=== PATIENT | male | born 2000 | race American Indian/Alaskan Native ===

== ENCOUNTER 2020-06-22 11:48 | Emergency (ER) | payer BC ==
[2020-06-22 11:54] VITALS: BP 113/74
--- NOTE | 2020-06-22 14:43 | Emergency Department Report ---
ED Headache HPI - General Chief Complaint: Headache Stated Complaint: Pressure in Head Time Seen by Provider: 06/22/20 14:37 Source: patient - History of Present Illness Initial Comments: Problems with 19-year-old male who denies any significant past medical history presents to the ER today complaining of pressure to the occipital aspect of his head. Patient states that he has been having this constant daily pressure since August 2019. He states that he came to the ER today because he did research online and it mentioned that his pressure could be related to spinal fluid leakage. Patient states that has seen his PCP for his symptoms and hads had multiple CTs in the past to evaluate his head pressure but no explain etiology of his pressure. He denies any head trauma. He states that the research no hematoma seen neurologist showed that if you had previous sinus surgery that it could lead to spinal fluid leakage but he last had spinal surgery sinus surgery a few years ago. He states that he still continues to have sinus drainage especially when he eats. Patient states that he tried dandelion and vahid tea today which seem to have eased his pain. Patient denies any nausea, vomiting, vision changes, slurred speech, focal weakness, dizziness, cough, fever, chills neck pain. He states that he felt suicidal about 1 to 2 weeks ago and was not eating or drinking anything but he states that this has since resolved, he no longer feels suicidal or have any homicidal ideation or hallucinations. He refuse any psych evaluation at this time. Timing/Duration: other (Chronic; onset since august 2019) Allergies/Adverse Reactions: Allergies No Known Allergies Allergy (Unverified 06/22/20 11:54) ED Review of Systems ROS: Stated complaint: EVALUATION Other details as noted in HPI Comment: All other systems reviewed and negative Constitutional: denies: chills, fever Eyes: denies: eye pain, eye discharge, vision change ENT: denies: ear pain, throat pain Respiratory: denies: cough, shortness of breath, wheezing Cardiovascular: denies: chest pain, palpitations Endocrine: no symptoms reported Gastrointestinal: denies: abdominal pain, nausea, diarrhea Genitourinary: denies: urgency, dysuria Musculoskeletal: denies: back pain, joint swelling, arthralgia Skin: denies: rash, lesions Neurological: headache. denies: weakness, numbness, paresthesias, confusion, abnormal gait Psychiatric: denies: anxiety, depression, auditory hallucinations, visual hallucinations, homicidal thoughts, suicidal thoughts ED Past Medical Hx - Past Medical History Previous Medical History?: Yes Additional medical history: Sinusitis, brain abscess - Surgical History Past Surgical History?: Yes Additional Surgical History: brain surgery for abscess - Social History Smoking Status: Never Smoker Substance Use Type: None ED Physical Exam - General Limitations: No Limitations General appearance: alert, in no apparent distress - Head Head exam: Present: atraumatic, normocephalic, normal inspection - Eye Eye exam: Present: normal appearance, PERRL, EOMI Pupils: Present: normal accommodation - ENT ENT exam: Present: normal exam, normal orophraynx, mucous membranes moist, other (No rhinorrhea or any evidence of leakage from his nose noted noted on exam) - Neck Neck exam: Present: normal inspection, full ROM (Marijuana). Absent: meningismus - Respiratory Respiratory exam: Present: normal lung sounds bilaterally, respiratory distress - Cardiovascular Cardiovascular Exam: Present: regular rate, normal rhythm, normal heart sounds - GI/Abdominal GI/Abdominal exam: Present: soft (No leakage), distended - Neurological Exam Neurological exam: Present: alert, oriented X3, CN II-XII intact, normal gait. Absent: motor sensory deficit - Psychiatric Psychiatric exam: Present: normal affect, normal mood - Skin Skin exam: Present: intact (Gait is completely normal) ED Course Vital Signs 06/22/20 11:52 Temperature 97.4 F L Pulse Rate 82 Respiratory 18 Rate Blood Pressure 113/74 O2 Sat by Pulse 100 Oximetry ED Medical Decision Making - Medical Decision Making The patient presented to the emergency department with a occipital head pressure since August 2019. He did research online today and is concerned that his pressure could be related to cerebrospinal fluid leakage. He denies any head trauma. He reported feeling suicidal about a week ago but denies any psych symptoms currently. It is the patient is now resting comfortably and is alert, talkative, interactive and in no distress. The patient appears well and he is not toxic. The examination is unremarkable and benign. The patient is neurologically intact, has a normal mental status, and is ambulatory in the ER. The history, exam, diagnostic testing and the patient's current condition does not suggest meningitis, stroke, sepsis, subarachnoid hemorrhage, intracranial bleeding, encephalitis, temporal arteritis, or other significant pathology to warrant further testing, continued ED treatment, admission, neurological consultation or other specialist evaluation at this point. Patient had no rhinorrhea on exam.. The vital signs have been stable. The patient's condition is stable and appropriate for discharge. Recommend to patient that he follows up with a neurologist and also his primary care doctor. Patient was stable at time of discharge. Critical care attestation.: If time is entered above; I have spent that time in minutes in the direct care of this critically ill patient, excluding procedure time. ED Disposition Clinical Impression: Occipital headache Disposition: DC-01 TO HOME OR SELFCARE Is pt being admited?: No Does the pt Need Aspirin: No Condition: Stable Instructions: Tension Headache, Adult Additional Instructions: I recommend that you follow-up with the neurologist listed on this discharge instructions for further evaluation including an MRI of your brain. You can also continue to follow-up with your primary care doctor. Return to the ER if your symptoms worsens or changes in any way or if you become suicidal homicidal or having hallucinations. Referrals: SREE HANCOCK II, MD [Staff Physician] - 3-5 Days PRIMARY MD NATALIE [Primary Care Provider] - 3-5 Days Time of Disposition: 14:45
== END 2020-06-22 15:47 | disposition home or self-care (01) ==
LOC: ED 11:48
DX: G44.209 Tension-type headache, unspecified, not intractable (principal); Z98.890 Other specified postprocedural states
CPT/HCPCS: 99282

== ENCOUNTER 2020-06-23 10:01 | Emergency (ER) | payer BC ==
[2020-06-23 10:16] VITALS: BP 103/70
--- NOTE | 2020-06-23 11:12 | Event Note ---
ED Screening Note ED Screening Note: Patient is a 19-year-old male presents emergency room with complaints of "breathing" I asked patient what he meant by this he states he was just breathing i asked if he felt SOB, he stated no Patient denies cough, fever, vomiting, diarrhea, any other symptoms Appears patient needs psychiatric evaluation This initial assessment/diagnostic orders/clinical plan/treatment(s) is/are subject to change based on patients health status, clinical progression and re- assessment by fellow clinical providers in the ED. Further treatment and workup at subsequent clinical providers discretion. Patient/guardian urged not to elope from the ED as their condition may be serious if not clinically assessed and managed. Initial orders include: Mental health evaluation
--- NOTE | 2020-06-23 14:01 | Emergency Department Report ---
<BETTYFRENCHJARAD PandaBrianna - Last Filed: 06/23/20 14:02> ED Psych HPI - General Chief Complaint: Dyspnea/Respdistress Stated Complaint: BREATHING AIR Time Seen by Provider: 06/23/20 11:10 Source: patient Mode of arrival: Ambulatory - History of Present Illness Initial Comments: Patient is 19 years old male unknown past medical or psychiatric history. Patient presented to the ER for the second time in less than 24 hours with no obvious complaint. Patient was asked by the nurse what brought him to the ER he said breathing however when I went to examine the patient, patient refused to talk unable to obtain any information from him. MD Complaint: altered mental status, other - Related Data Allergies Allergy/AdvReac Type Severity Reaction Status Date / Time No Known Allergies Allergy Unverified 06/22/20 11:54 ED Review of Systems Comment: Unobtainable due to pts medical conditions ED Past Medical Hx - Past Medical History Additional medical history: Sinusitis, brain abscess - Surgical History Additional Surgical History: brain surgery for abscess - Social History Smoking Status: Unknown if ever smoked ED Physical Exam - General Limitations: No Limitations General appearance: alert, in no apparent distress - Head Head exam: Present: atraumatic, normocephalic, normal inspection - Eye Eye exam: Present: normal appearance - ENT ENT exam: Present: normal exam, normal orophraynx, mucous membranes moist - Neck Neck exam: Present: normal inspection, full ROM. Absent: tenderness, meningismus - Respiratory Respiratory exam: Present: normal lung sounds bilaterally - Cardiovascular Cardiovascular Exam: Present: regular rate, normal rhythm, normal heart sounds - GI/Abdominal GI/Abdominal exam: Present: soft, normal bowel sounds. Absent: distended, tenderness, guarding, rebound, rigid, organomegaly, mass, bruit, pulsatile mass, hernia - Extremities Exam Extremities exam: Present: normal inspection, full ROM, normal capillary refill. Absent: tenderness - Back Exam Back exam: Present: normal inspection, full ROM. Absent: CVA tenderness (R), CVA tenderness (L) - Neurological Exam Neurological exam: Present: alert, oriented X3, CN II-XII intact, normal gait, reflexes normal. Absent: motor sensory deficit - Psychiatric Psychiatric exam: Present: flat affect - Skin Skin exam: Present: warm, intact, normal color ED Disposition Clinical Impression: Psychiatric disorder Disposition: DC-01 TO HOME OR SELFCARE Condition: Stable Instructions: Confusion Additional Instructions: Outpatient COMMUNITY Behavioral [facility]: [facility]) [address] [place] [address] / [phone] Sunday thru Sunday - 8am - 5pm [facility] Address: [address] [place] [address] Sunday thru Sunday- 7am-2pm [facility] Address: [address] [place] [address] Sunday thru Sunday: 8:30AM-5PM CRISIS RESOURCES [place] Crisis Line: Suicide Prevention Line: Crisis Text Line: Text START to 044175 Emergency: 911 In case of an emergency, please contact the following numbers: [place] Crisis and Access Line: Number: Crisis Text Line: (Text START) Number: 896744 Suicide Prevention Line: Number: Emergency Number: 911 SUBSTANCE ABUSE PROGRAMS: [facility]: Location: [place], [place] [employer]! Address: [address] [place] [address] [facility]: Address: [address] [place] [address] [facility]: Address: [address] [place] [address] [facility]: Address: [address] [place] [address] [facility] Address: [address] [place] [address]. Please contact above numbers to attempt placement into free based program. Medicaid Programs: [facility]: Address: [address] [place] [address] [facility]: Address: [address] [place] [id number] Referrals: PRIMARY CARE, [Primary Care Provider] - 3-5 Days <LOREN BERTRAND - Last Filed: 06/23/20 17:50> ED Review of Systems ROS: Stated complaint: BREATHING AIR Other details as noted in HPI ED Course Vital Signs 06/23/20 10:14 Temperature 98.0 F Pulse Rate 74 Respiratory 20 Rate Blood Pressure 103/70 O2 Sat by Pulse 100 Oximetry - Reevaluation(s) Reevaluation #1: 06/23/20 17:42 Patient reevaluated and in no acute distress without complaint. Patient initially reluctant to give history, however, upon informing him he has been cleared by psychiatry for discharge he states he has come to the ER because he feels like he cannot think clearly lately. Neuro exam is nonfocal. Cleared by psychiatry for discharge with referral for outpatient substance abuse treatment. 06/23/20 17:49 ED Medical Decision Making - Lab Data Result diagrams: 06/23/20 14:12 06/23/20 14:12 Labs 06/23/20 06/23/20 06/23/20 14:12 14:12 14:12 WBC 4.8 RBC 4.85 Hgb 13.5 Hct 41.3 MCV 85 MCH 28 MCHC 33 RDW 15.7 H Plt Count 218 Lymph % (Auto) 35.1 H Todd % (Auto) 7.6 H Eos % (Auto) 1.3 Baso % (Auto) 0.9 Lymph # (Auto) 1.7 Todd # (Auto) 0.4 Eos # (Auto) 0.1 Baso # (Auto) 0.0 Seg Neutrophils % 55.1 Seg Neutrophils # 2.7 Sodium 142 Potassium 3.9 Chloride 102.9 Carbon Dioxide 30 Anion Gap 13 BUN 12 Creatinine 0.6 L Estimated GFR > 60 BUN/Creatinine Ratio 20 Glucose 78 Calcium 9.8 Urine Color Urine Turbidity Urine pH Ur Specific [place] Urine Protein Urine Glucose (UA) Urine Ketones Urine Blood Urine Nitrite Urine Bilirubin Urine Urobilinogen Ur Leukocyte Esterase Urine WBC (Auto) Urine RBC (Auto) Urine Mucus Urine Yeast (Budding) Salicylates < 0.3 L Urine Opiates Screen Urine Methadone Screen Acetaminophen Ur Barbiturates Screen Ur Phencyclidine Scrn Ur Amphetamines Screen U Benzodiazepines Scrn Urine Cocaine Screen U Marijuana (THC) Screen Drugs of Abuse Note Plasma/Serum Alcohol 06/23/20 06/23/20 06/23/20 14:12 14:12 15:26 WBC RBC Hgb Hct MCV MCH MCHC RDW Plt Count Lymph % (Auto) Todd % (Auto) Eos % (Auto) Baso % (Auto) Lymph # (Auto) Todd # (Auto) Eos # (Auto) Baso # (Auto) Seg Neutrophils % Seg Neutrophils # Sodium Potassium Chloride Carbon Dioxide Anion Gap BUN Creatinine Estimated GFR BUN/Creatinine Ratio Glucose Calcium Urine Color Yellow Urine Turbidity Clear Urine pH 7.0 Ur Specific [place] 1.017 Urine Protein 30 mg/dl Urine Glucose (UA) Neg Urine Ketones Neg Urine Blood Neg Urine Nitrite Neg Urine Bilirubin Neg Urine Urobilinogen < 2.0 Ur Leukocyte Esterase Neg Urine WBC (Auto) 1.0 Urine RBC (Auto) 9.0 Urine Mucus 3+ Urine Yeast (Budding) 1+ Salicylates Urine Opiates Screen Urine Methadone Screen Acetaminophen 5.0 L Ur Barbiturates Screen Ur Phencyclidine Scrn Ur Amphetamines Screen U Benzodiazepines Scrn Urine Cocaine Screen U Marijuana (THC) Screen Drugs of Abuse Note Plasma/Serum Alcohol < 0.01 06/23/20 15:26 WBC RBC Hgb Hct MCV MCH MCHC RDW Plt Count Lymph % (Auto) Todd % (Auto) Eos % (Auto) Baso % (Auto) Lymph # (Auto) Todd # (Auto) Eos # (Auto) Baso # (Auto) Seg Neutrophils % Seg Neutrophils # Sodium Potassium Chloride Carbon Dioxide Anion Gap BUN Creatinine Estimated GFR BUN/Creatinine Ratio Glucose Calcium Urine Color Urine Turbidity Urine pH Ur Specific [place] Urine Protein Urine Glucose (UA) Urine Ketones Urine Blood Urine Nitrite Urine Bilirubin Urine Urobilinogen Ur Leukocyte Esterase Urine WBC (Auto) Urine RBC (Auto) Urine Mucus Urine Yeast (Budding) Salicylates Urine Opiates Screen Negative Urine Methadone Screen Negative Acetaminophen Ur Barbiturates Screen Negative Ur Phencyclidine Scrn Negative Ur Amphetamines Screen Negative U Benzodiazepines Scrn Negative Urine Cocaine Screen Negative U Marijuana (THC) Screen Negative Drugs of Abuse Note Disclamer Plasma/Serum Alcohol Vital Signs 06/23/20 10:14 Temperature 98.0 F Pulse Rate 74 Respiratory 20 Rate Blood Pressure 103/70 O2 Sat by Pulse 100 Oximetry Critical care attestation.: If time is entered above; I have spent that time in minutes in the direct care of this critically ill patient, excluding procedure time. ED Disposition Is pt being admited?: No
[2020-06-23 14:35] LABS: Basophils % (Auto) 0.9 % (0.0-1.8); Eosinophils # (Auto) 0.1 K/mm3 (0.0-0.4); Eosinophils % (Auto) 1.3 % (0.0-4.3); Hematocrit 41.3 % (35.5-45.6); Hemoglobin 13.5 gm/dl (11.8-15.2); Lymphocytes # (Auto) 1.7 K/mm3 (1.2-5.4); Lymphocytes % (Auto) 35.1 % (13.4-35.0); Mean Corpuscular HGB Conc 33 % (32-34); Mean Corpuscular Volume 85 fl (84-94); Monocytes # (Auto) 0.4 K/mm3 (0.0-0.8); Monocytes % (Auto) 7.6 % (0.0-7.3); Platelet Count 218 K/mm3 (140-440); Red Blood Count 4.85 M/mm3 (3.65-5.03); Red Cell Distribution Width 15.7 % (13.2-15.2)
[2020-06-23 14:55] LABS: Blood Urea Nitrogen 12 mg/dL (9-20); Calcium 9.8 mg/dL (8.4-10.2); Hemolysis Index 7
[2020-06-23 15:09] LABS: BUN/Creatinine Ratio 20
[2020-06-23 15:56] LABS: Bilirubin,Urine NEG (Negative); Blood,Urine NEG (Negative); Color,Urine Yellow (Yellow); Mucus,Urine 3+ /HPF; Urobilinogen,Urine < 2.0 mg/dL (<2.0)
[2020-06-23 16:02] LABS: Amphetamine Screen,Urine Negative; Benzodiazepines Screen,Urine Negative; Cannabinoid Screen,Urine Negative; Cocaine Screen,Urine Negative; Methadone Screen,Urine Negative; Opiate Screen,Urine Negative
== END 2020-06-23 17:56 | disposition home or self-care (01) ==
LOC: ED 10:01
DX: R41.82 Altered mental status, unspecified (principal)
CPT/HCPCS: 36415; 80048; 80307; 80320; 81001; 85025; G0480

== ENCOUNTER 2020-06-24 01:47 | Emergency (ER) | payer BC ==
--- NOTE | 2020-06-24 03:59 | Emergency Department Report ---
HPI - General Chief Complaint: Psych Time Seen by Provider: 06/24/20 03:48 - HPI HPI: This is a 19-year-old -[place] male who presents to the emergency department for a mental health evaluation. The patient was seen here yesterday, 06/23/2020, for a psychiatric assessment. He was seen by the psychiatric occupational ther, and the case was staffed with the psychiatric PA, and the patient was cleared by psych for outpatient follow-up. The patient was brought over to [place] by his father and per the father they were allegedly told that they can "come over here voluntarily, but you only get admitted involuntarily" and then they were told to return to the emergency department. When I ask the patient the reason for coming to the emergency department this evening, the patient says " my mind is not right." The patient says "I diagnosed myself with things" in reference to some persistent head pain/pressure that he says he feels that is due to leakage of spinal fluid. However, the patient also admits that he has had multiple CT scans of the head done, and multiple previous visits to emergency departments, without any diagnosis or answers. The patient is not very forthcoming with information and often has to receive multiple encouragements to provide answers to the questions asked. The patient says that he started having issues with focusing after ingesting mushrooms back in December. When asking the patient if he has any auditory or v isual hallucinations, the patient responds with "I do not understand what that means" and "what would something like that look like?" The patient does admit to having some previous suicidal ideations. When asked if he has current suicidal ideations, the patient does not deny it, but says that he recently told his Aunt "that I am dying." The patient's father says that he just recently came back into the patient's life, but "my son needs help." He says that he has been hallucinating, has told himself and family that he wants to kill himself, and "it has gotten so bad that my sister threw him out and he is now homeless." The patient's father also says that he is bipolar, but he is unable to tell me where or when the patient was given this diagnosis. ED Past Medical Hx - Past Medical History Previous Medical History?: Yes Hx Psychiatric Treatment: Yes (Bipolar) Additional medical history: Sinusitis, brain abscess - Surgical History Past Surgical History?: Yes Additional Surgical History: brain surgery for abscess - Social History Smoking Status: Never Smoker Substance Use Type: None ED Review of Systems ROS: Stated complaint: MH EVAL/CLEARANCE Other details as noted in HPI Comment: All other systems reviewed and negative Constitutional: denies: chills, fever Eyes: denies: eye pain, vision change ENT: denies: ear pain, throat pain Respiratory: denies: cough, shortness of breath Cardiovascular: denies: chest pain, palpitations Gastrointestinal: denies: abdominal pain, vomiting Musculoskeletal: denies: back pain, arthralgia Neurological: denies: weakness, numbness Psychiatric: denies: homicidal thoughts Physical Exam - Physical Exam Vital Signs: Vital Signs 06/24/20 02:20 Temperature 98.2 F Pulse Rate 68 Respiratory 18 Rate Blood Pressure 106/64 O2 Sat by Pulse 100 Oximetry Physical Exam: GENERAL: The patient is well-developed well-nourished. HENT: Normocephalic. Atraumatic. Patient has moist mucous membranes. EYES: Extraocular motions are intact. NECK: Supple. Trachea is midline. CHEST/LUNGS: Clear to auscultation. There is no respiratory distress noted. HEART/CARDIOVASCULAR: Regular. There is no tachycardia. There is no murmur. ABDOMEN: Abdomen is soft, nontender. Patient has normal bowel sounds. SKIN: Skin is warm and dry. NEURO: The patient is awake, alert, and oriented. The patient follows commands. Cranial nerves II through XII grossly intact. There is often a long delay between questions and answers. MUSCULOSKELETAL: There is no tenderness or deformity. There is no limitation range of motion. ED Course Vital Signs 06/24/20 02:20 Temperature 98.2 F Pulse Rate 68 Respiratory 18 Rate Blood Pressure 106/64 O2 Sat by Pulse 100 Oximetry ED Medical Decision Making - Lab Data Result diagrams: 06/24/20 12:02 06/24/20 12:02 - Medical Decision Making This patient had a medical clearance done yesterday, so I have not repeated any of the blood work except for the blood alcohol level. That came back negative. I also repeated the UDS which was also negative. The patient's urine sample looked cloudy so a urinalysis was sent and came back showing a urinary tract infection with greater than 60 WBCs. Patient will be started on Macrobid. Vital signs has been reassuring throughout his ED course thus far including myron ng afebrile. Patient returns to the emergency department for a mental health evaluation. He is oriented to person, place, time, but otherwise has a very strange demeanor. There is a long delay between most questions and answers. The patient does not answer all questions. He appears fixated on some issue regarding leakage of spinal fluid that he thinks has caused his mind to "not be right." Per the patient's father, the patient has been hallucinating, responding to internal stimuli, and expressing suicidal ideations. The patient does not deny current suicidal ideations and does express that he has had them in the recent past, at least 2 weeks ago. It appears that what ever has been going on with the patient has caused him to not be able to hold down a job, have a normal social structure, and has caused him to be kicked out of his home and he is now currently homeless. The patient has been made a ED hold to see both case management and a reevaluation from the psychiatric team. If the psychiatric team feels that the patient would benefit from inpatient stabilization, I would consider the patient medically cleared. Critical Care Time: No Critical care attestation.: If time is entered above; I have spent that time in minutes in the direct care of this critically ill patient, excluding procedure time. ED Disposition Clinical Impression: Psychiatric disorder, Medical clearance for psychiatric admission Disposition: DC/TX-65 PSY HOSP/PSY UNIT Is pt being admited?: No Condition: Stable Referrals: PRIMARY CARE, [Primary Care Provider] - 3-5 Days
[2020-06-24 04:55] LABS: Amphetamine Screen,Urine PRESUMPTIVE NEGATIVE; Benzodiazepines Screen,Urine PRESUMPTIVE NEGATIVE; Cannabinoid Screen,Urine PRESUMPTIVE NEGATIVE; Cocaine Screen,Urine PRESUMPTIVE NEGATIVE; Methadone Screen,Urine PRESUMPTIVE NEGATIVE; Opiate Screen,Urine PRESUMPTIVE NEGATIVE
[2020-06-24 05:09] LABS: Bacteria,Urine 2+ /HPF (Negative); Bilirubin,Urine NEG (Negative); Blood,Urine NEG (Negative); Color,Urine Yellow (Yellow); Mucus,Urine 3+ /HPF; Urobilinogen,Urine < 2.0 mg/dL (<2.0)
[2020-06-24] MEDS: NITROFURANTOIN MONOHYD/M-CRYST 100 MG CAP PO SCH ×3 (05:32→21:29)
--- NOTE | 2020-06-24 08:49 | Consultation ---
History of Present Illness - Reason for Consult Consult date: 06/24/20 Reason for consult: MHE Requesting physician: ARIELA REYES - History of Present Psychiatric Illness Per ED Provider: This is a 19-year-old -Filipino male who presents to the emergency department for a mental health evaluation. The patient was seen here yesterday, 06/23/2020, for a psychiatric assessment. He was seen by the psychiatric gps navigation installer, and the case was staffed with the psychiatric PA, and the patient was cleared by psych for outpatient follow-up. The patient was brought over to [place] by his father and per the father they were allegedly told that they can "come over here voluntarily, but you only get admitted involuntarily" and then they were told to return to the emergency department. When I ask the patient the reason for coming to the emergency department this evening, the patient says " my mind is not right." The patient says "I diagnosed myself with things" in reference to some persistent head pain/pressure that he says he feels that is due to leakage of spinal fluid. However, the patient also admits that he has had multiple CT scans of the head done, and multiple previous visits to emergency departments, without any diagnosis or answers. The patient is not very forthcoming with information and often has to receive multiple encouragements to provide answers to the questions asked. The patient says that he started having issues with focusing after ingesting mushrooms back in December. When asking the patient if he has any auditory or visual hallucinations, the patient responds with "I do not understand what that means" and "what would something like that look like?" The patient does admit to having some previous suicidal ideations. When asked if he has current suicidal ideations, the patient does not deny it, but says that he recently told his Aunt "that I am dying." The patient's father says that he just recently came back into the patient's life, but "my son needs help." He says that he has been hallucinating, has told himself and family that he wants to kill himself, and "it has gotten so bad that my sister threw him out and he is now homeless." The patient's father also says that he is bipolar, but he is unable to tell me where or when the patient was given this diagnosis. Per MHA: Pt is a 19 y/o AA male who presents to the ED for a MHE. During current ax, pt presents with calm mood, affect congruent with mood, and cooperative was selective. Pt required prompting to answer questions as he failed to answer majority of the questions verbally. pt typed his responses on his cellular phone, utilizes gestures with his hands, thumbs, and pictures as symbols to inform fiction and nonfiction writer prose of how he was feeling. Per pt, he is experiencing pressure in his head and neck due to sinuses. Denies SI, HI, AVH. Reports that he refused to eat in May as a self-harm attempt. No current provider or psych hx. Spoke with pts mother in law, Monica Milner [phone], and she states that she received a t/c from pt this morning at 6am. [place] and you can hear the traffic in the background. Reports that pt was off and had no clear answers. Reports that she assumed that someone had him against his will until she spoke with his mother Ms. Juan Luis Lund [phone] who informed her that pt has been using drugs (mushrooms) and it messed up his mind. Spoke with pts mother, Cynthia Lund [phone], who indicated that pt has been having difficulty focusing, poor decision making (fired from several jobs), and experimented with mushrooms last year. After mushroom use it altered his mental state. Per mother, pt. refers to himself as Nicole and he lives in a 3D world. Reports that pt stopped eating for 10 days with the intent to harm himself last month and indicated that it would be less suffering in the world. Reports that pt states that his words are david and selective with speaking. Hx of sinus infections. Continues to complain of pain in his head, however, scans have shown otherwise. Reports changes to sleep. PSYCH HPI Patient is a 19-year-old, single, unemployed and currently homeless - Filipino male with no prior psychiatric history of medical history who presented by the ED by his dad for mental health evaluation. Patient has been presented to the ED at least 2-3 times within a 24 to 48 hours., She will consult with me over the phone recommended outpatient cardiac follow-up given no acute psychosis. But family were informed to come back to the ER after going to [facility] for inpatient recommendation. Patient seen this a.m., patient feels guarded and withdrawn to self, patient is alert and oriented and stated he is here for psych assessment based on recommendation by his dad and aunt. Patient reported his aunt believes his use of magic motion for the last few years as changes state of mind, and dimension in such a way that he feels different in a different reality. Patient reported associated behavior changes, which includes changing from eating made to begin based diet and losing some weight, reported working jobs 1 years quit under [employer], also reports starting medication and watching YouTube videos on "Existentialism" in which he listens and follows the doctorines of a particular psychologist. PAST PSYCHIATRIC HISTORY Diagnoses: none reported Suicide attempts or Self-harm behavior: none reported Prior psychiatric hospitalizations: none reported Substance Abuse history: Mushrooms Previous psychiatric medications tried: none reported Outpatient treatment: none reported PAST MEDICAL HISTORY: none reported Family Psychiatric History: None reported or documented SOCIAL HISTORY Marital Status: Single Living Arrangements: homeless Employment Status: unemployed Access to guns/weapons:e none reported Education: GED History of Abuse: none reported Legal History: none reported REVIEW OF SYSTEMS Constitutional: Negative for weight loss ENT: Negative for stridor Respiratory: Negative for cough or hemoptysis All other systems reviewed and are negative MENTAL STATUS EXAMINATION General Appearance and Behavior: Age appropriate, fair hygiene, wearing appropriate clothes, lying in bed, poor eye contact, cooperative irritable with questioning. Cooperation: Participating, Hostile and Guarded Psychomotor Behavior: unremarkable and within normal limits Mood: I don't know Affect and affective range: flat, preservative Thought Process: circumstitial Illogical, Blocked, Thought Content: hallucinations, paranoia Speech: Normal volume, Regular rate and rhythm, Intellectual Functioning: Average Suicidal Ideation: Denies SI Homicidal Ideation: Denies HI Impulse Control: Impaired Insight and Judgment: Limited insight and judgment Memory: Short term memory intact Attention: Divided attention impaired Orientation: Alert, oriented, Diagnoses: Assessment and Plan - Psychiatric problem (1) Paranoid schizophrenia with prominent negative symptoms Current Visit: Yes Status: Acute F20.0 Treatment Plan MEDICATIONS: Risks, benefits and alternatives of medications discussed with the patient, questions answered and consent obtained from patient. PSYCHOTHERAPY: Supportive psychotherapy provided MEDICAL: Per primary team DELIRIUM PRECAUTIONS: Please re-orient patient frequently, keep lights on during the day, and minimize benzodiazepines and opiates as these medications could worsen patient's confusion. CLIENT SUPPORT ANALYST: DISPOSITION: Do Recommend acute inpatient psychiatric hospitalization at this time. Case discussed with Dr. Mukherjee who agrees with current disposition LEGAL STATUS: 1013 FOLLOW-UP: Will follow Thank you for the consult. Please contact with any questions and/or concerns. Medications and Allergies Allergies Allergy/AdvReac Type Severity Reaction Status Date / Time No Known Allergies Allergy Unverified 06/22/20 11:54 Active Meds: Active Medications Nitrofurantoin Macrocrystals (Nitrofurantoin Monohyd/M-Cryst 100 Mg Cap) 100 mg PO Q12HR WILDER Last Admin: 06/24/20 05:32 Dose: 100 mg Documented by: Mental Status Exam - Vital signs Last Vital Signs Temp 98.2 F 06/24/20 02:20 Pulse 68 06/24/20 02:20 Resp 18 06/24/20 02:20 BP 106/64 06/24/20 02:20 Pulse Ox 100 06/24/20 02:20 Results Abnormal lab results 06/24/20 Range/Units 04:35 Urine pH 8.0 H (5.0-7.0) Urine WBC (Auto) 61.0 H (0.0-6.0) /HPF All other labs normal. Assessment and Plan - Psychiatric problem (1) Paranoid schizophrenia with prominent negative symptoms Current Visit: Yes Status: Acute
[2020-06-24] MEDS ORDERED: VALPROIC ACID 250 MG CAP PO ONE (11:09)
[2020-06-24] MEDS: VALPROIC ACID 250 MG CAP PO SCH ×2 (11:18→21:29)
[2020-06-24] MEDS: HALOPERIDOL 2 MG TAB PO SCH ×2 (11:18→21:29)
[2020-06-24 12:34] LABS: Basophils % (Auto) 0.7 % (0.0-1.8); Eosinophils % (Auto) 1.3 % (0.0-4.3); Hematocrit 40.4 % (35.5-45.6); Hemoglobin 13.2 gm/dl (11.8-15.2); Lymphocytes # (Auto) 1.1 K/mm3 (1.2-5.4); Lymphocytes % (Auto) 36.1 % (13.4-35.0); Mean Corpuscular HGB Conc 33 % (32-34); Mean Corpuscular Volume 85 fl (84-94); Monocytes # (Auto) 0.2 K/mm3 (0.0-0.8); Monocytes % (Auto) 6.2 % (0.0-7.3); Platelet Count 199 K/mm3 (140-440); Red Blood Count 4.77 M/mm3 (3.65-5.03); Red Cell Distribution Width 15.1 % (13.2-15.2)
[2020-06-24 12:53] LABS: Blood Urea Nitrogen 15 mg/dL (9-20); Calcium 9.8 mg/dL (8.4-10.2); Hemolysis Index 5
[2020-06-24 12:54] LABS: BUN/Creatinine Ratio 21
--- NOTE | 2020-06-25 08:56 | Progress Note ---
Subjective - Reason for Consult Consult date: 06/25/20 Reason for consult: suicidal - Chief Complaint Chief complaint: During my interview with the patient he is sitting on side of the bed. He is fidgety and bouncing his leg continuously during the interview. He makes poor eye contact. He is guarded. When asked was he nervous, the patient replied "I'm in a lot of pain." The patient says he has "brain pressure." When asked why did he believe he had pressure in his brain the patient says "I know I do." He says, "I've had multiple CT scans, and talked with many doctors." The patient then says "all the CT's were negative and they keep saying it's nothing there." He says "I know there's something going on." He denies hallucinations of any kind. When asked was he suicidal, the patient says "I told them that yesterday." When asked was he currently feeling this way, the patient says "somewhat." The patient says he didn't sleep that good when asked. REVIEW OF SYSTEMS Constitutional: Negative for weight loss ENT: Negative for stridor Respiratory: Negative for cough or hemoptysis All other systems reviewed and are negative MENTAL STATUS EXAMINATION General Appearance and Behavior: Age appropriate, fair hygiene, wearing appropriate clothes, lying in bed, poor eye contact, cooperative, fidgety, appears anxious Cooperation: Participating, but Guarded Psychomotor Behavior: unremarkable and within normal limits Mood: "okay, I guess" Affect and affective range: congruent with current mood Thought Process: Illogical Thought Content: delusions, suicidal thoughts Speech: Normal volume, Regular rate and rhythm, Suicidal Ideation: "somewhat" Homicidal Ideation: Denies HI Hallucinations: Denies Delusions: yes Impulse Control: Impaired Insight and Judgment: Limited insight and judgment Memory: Short term memory intact Attention: Divided attention impaired Orientation: Alert, oriented, Diagnoses: Assessment and Plan (1) Paranoid schizophrenia with prominent negative symptoms (F200) Current Visit: Yes Status: Acute Treatment Plan MEDICATIONS: Start Trazodone 50mg po qhs, continue current regimen Risks, benefits and alternatives of medications discussed with the patient, questions answered and consent obtained from patient. PSYCHOTHERAPY: Supportive psychotherapy provided MEDICAL: Per primary team DELIRIUM PRECAUTIONS: Please re-orient patient frequently, keep lights on during the day, and minimize benzodiazepines and opiates as these medications could worsen patient's confusion. 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 Case discussed with Dr. Mukherjee who agrees with current disposition LEGAL STATUS: 1013 FOLLOW-UP: Will follow Thank you for the consult. Please contact with any questions and/or concerns. Mental Status Exam - Vital signs Last Vital Signs Temp 97.3 F L 06/25/20 08:21 Pulse 93 H 06/25/20 08:21 Resp 20 06/25/20 08:21 BP 112/65 06/25/20 08:21 Pulse Ox 99 06/25/20 08:21
[2020-06-25] MEDS: VALPROIC ACID 250 MG CAP PO SCH (10:54)
[2020-06-25] MEDS: NITROFURANTOIN MONOHYD/M-CRYST 100 MG CAP PO SCH (10:54)
[2020-06-25] MEDS: HALOPERIDOL 2 MG TAB PO SCH (10:54)
[2020-06-25 20:19] VITALS: BP 112/77
[2020-06-25] MEDS ORDERED: traZODone 50 MG TAB PO SCH (22:00)
== END 2020-06-25 21:45 ==
LOC: ED 01:47
DX: F29 Unspecified psychosis not due to a substance or known physiological condition (principal); F31.9 Bipolar disorder, unspecified; Z04.6 Encounter for general psychiatric examination, requested by authority; Z79.899 Other long term (current) drug therapy
CPT/HCPCS: 36415; 80048; 80307; 80320; 81001; 85025; 87086; G0480